=== PATIENT | female | born 1965 | race American Indian/Alaskan Native ===

== ENCOUNTER 2016-09-30 08:46 | Day surgery (SDC) | payer OTHER ==
[2016-09-24 08:13] VITALS: BMI 22.1
[2016-09-30] MEDS ORDERED: Lactated Ringer's 1,000 ML IV SCH (09:02)
[2016-09-30] MEDS ORDERED: Propofol 10 mg/ml Inj (20 ML) ONE (09:50)
[2016-09-30 10:19] VITALS: TEMP 98.3
[2016-09-30 13:06] VITALS: BP 140/76; PULSE 61; RESP 18; O2SAT 97
== END 2016-09-30 13:29 | disposition home or self-care (01) ==
LOC: ENDO 08:46
PROVIDERS: ATTEND Internal Medicine
DX: K63.5 Polyp of colon (principal); K62.1 Rectal polyp; K57.30 Diverticulosis of large intestine without perforation or abscess without bleeding; K64.8 Other hemorrhoids; R19.4 Change in bowel habit
CPT/HCPCS: 45380; 45381; 45385; 88305; J2001; J2704; J7040; J7120